=== PATIENT | male | born 1995 | race Caucasian/White ===

== ENCOUNTER 2017-06-19 19:25 | Emergency (ER) | payer OTHER ==
[~2017-06-19] VITALS: Ht 180.3 cm; Wt 83.0 kg
[~2017-06-19 19:25] MED LIST: CARAFATE1 GM PO; IBUPROFEN600 MG PO; MOTRIN600 MG PO; NO HOME MED; ULTRAM50 MG PO
[2017-06-19 19:56] LABS: HEMATOCRIT 49.3 % (38.0-50.0); HEMOGLOBIN 18.3 G/DL (12.5-16.6); MCH 31.9 PG (29.0-34.0); MCHC 37.1 G/DL (30.0-36.0); PLATELET COUNT 288 K/uL (156-360); RBC DIS.WIDTH-CV 11.3 % (11.8-14.6); RBC DIS.WIDTH-SD 35.5 % (39-53); RED BLOOD COUNT 5.73 M/uL (4.00-5.50); WHITE BLOOD COUNT 16.5 K/uL (4.1-10.2)
[2017-06-19 20:13] LABS: CHLORIDE 99 mEq/L (99-109); POTASSIUM 3.9 mEq/L (3.7-5.4); SODIUM 138 mEq/L (136-147)
[2017-06-19 20:16] LABS: GLUCOSE 119 mg/dL (70-99); TOTAL PROTEIN 7.8 g/dL (6.4-8.3)
[2017-06-19 20:18] LABS: TOTAL BILIRUBIN 1.5 mg/dL (0.0-1.0)
[2017-06-19 20:19] LABS: ALKALINE PHOSPHATASE 82 IU/L (3-129)
[2017-06-19 20:20] LABS: CREATININE 1.1 mg/dL (0.6-1.3); GFR ESTIMATE (CALCULATED) > 59 mL/min/ (58.99-99999)
[2017-06-19 20:21] LABS: AST (GOT) 20 IU/L (2-34); DIRECT BILIRUBIN 0.4 mg/dL (0.0-0.3); UREA NITROGEN (BUN) 19 mg/dL (9-23)
[2017-06-19 20:22] LABS: ALT (GPT) 26 IU/L (3-49)
[2017-06-19 20:23] LABS: LIPASE 10 U/L (1.0-51.0)
[2017-06-19 20:28] LABS: TROP-I INTERPRETATION NEGATIVE; TROPONIN-I < 0.01 ng/mL (0.0-0.30)
[2017-06-20 00:10] LABS: APPEARANCE CLEAR ((CLEAR)); BILIRUBIN NEGATIVE; BLOOD NEGATIVE; COLOR YELLOW ((YELLOW)); GLUCOSE (STRIP) NEGATIVE; KETONES NEGATIVE; LEUKOCYTES NEGATIVE; NITRITE NEGATIVE; PROTEIN (STRIP) 30; UCUL ADDED? NO
[2017-06-20 00:14] LABS: SPECIFIC GRAVITY > 1.060 (1.000-1.030)
[2017-06-20] MEDS ORDERED: NAPROSYN500 MG PO (00:52)
[2017-06-20] MEDS ORDERED: PROTONIX20 MG PO (00:52)
[2017-06-20] MEDS ORDERED: FLEXERIL10 MG PO (00:52)
[2017-06-20 00:54] VITALS: BP 128/66
[2017-06-20] MEDS ORDERED: ZOFRAN4 MG SL (00:56)
== END 2017-06-20 00:54 | disposition home or self-care (01) ==
LOC: EME 19:25
PROVIDERS: Physician Assistant
DX: M54.9 Dorsalgia, unspecified (principal); E86.0 Dehydration; R10.9 Unspecified abdominal pain; R07.9 Chest pain, unspecified; K21.9 Gastro-esophageal reflux disease without esophagitis; F41.9 Anxiety disorder, unspecified; F17.200 Nicotine dependence, unspecified, uncomplicated; R06.02 Shortness of breath; M54.2 Cervicalgia; R10.10 Upper abdominal pain, unspecified; R11.2 Nausea with vomiting, unspecified
CPT/HCPCS: 71046; 71275; 74177; 80048; 80076; 81003; 83690; 84484; 85027; 93005; 99281; 99284; J1885; J2060; J2270; J2405; J7030